=== PATIENT | female | born 2000 | race Caucasian/White ===

== ENCOUNTER 2019-05-02 05:36 | Day surgery (SDC) | payer OTHER ==
[~2019-05-02] VITALS: Ht 157.5 cm; Wt 50.9 kg
[2019-05-02] VITALS (17 sets, daily range): BP systolic 97–121; BP diastolic 48–73; PULSE 74–108; RESP 6–27; Ht 157.5 cm; Wt 50.9 kg
[2019-05-02] MEDS ORDERED: BUPIVACAINE 0.25%/EPI (SDV) 10 ML INJ ONE (06:57)
[2019-05-02] MEDS ORDERED: PHENYLephrine (100 MCG/ML) 10ML SYG ONE (06:58)
[2019-05-02] MEDS ORDERED: DESFLURANE 15 MIN ONE (06:58)
[2019-05-02] MEDS ORDERED: PROPOFOL 20 ML ONE (06:58)
[2019-05-02] MEDS ORDERED: SUCCINYLCHOLINE CHLORIDE 100 MG/5 ML SYG IV ONE (06:58)
[2019-05-02] MEDS ORDERED: LIDOCAINE 2% (SDV) 5 ML INJ ONE (06:58)
[2019-05-02] MEDS ORDERED: FENTAnyl 50 MCG/ML VIAL ONE ×2 (06:58→08:18)
[2019-05-02] MEDS ORDERED: CEFAZOLIN 1 GM INJ ONE (06:58)
[2019-05-02] MEDS ORDERED: MIDAZOLAM 1 MG/ML 2 ML INJ ONE (07:22)
[2019-05-02] MEDS ORDERED: DEXAMETHASONE 4 MG/ML 5 ML INJ ONE (07:30)
[2019-05-02] MEDS ORDERED: ONDANSETRON 4 MG INJ ONE (07:30)
[2019-05-02] MEDS ORDERED: FENTAnyl 50 MCG/ML VIAL IV PRN ×3 (08:00)
[2019-05-02] MEDS ORDERED: LABETALOL HCL 20MG INJ IV PRN (08:00)
[2019-05-02] MEDS ORDERED: ALBUTEROL 0.083% (NEB) 2.5 MG/3 ML AMP HHN PRN (08:00)
[2019-05-02] MEDS ORDERED: MEPERIDINE 25 MG INJ IV PRN (08:00)
[2019-05-02] MEDS ORDERED: OXYCODONE/ACETAMINOPHEN (5/325) TAB PO PRN ×2 (08:00)
[2019-05-02] MEDS ORDERED: DIPHENHYDRAMINE 50 MG INJ IV PRN (08:00)
[2019-05-02] MEDS ORDERED: IPRATROPIUM (NEB) 0.5 MG/2.5 ML AMP HHN PRN (08:00)
[2019-05-02] MEDS ORDERED: EPHEDrine 25 MG/5 ML SYG IV PRN (08:00)
[2019-05-02] MEDS ORDERED: ONDANSETRON 4 MG INJ IV PRN ×2 (08:00→09:00)
[2019-05-02] MEDS ORDERED: hydrALAzine 20 MG INJ IV PRN (08:00)
[2019-05-02] MEDS ORDERED: HYDROmorphONE 1 MG/5 ML IV SYRINGE IV PRN ×3 (08:00)
[2019-05-02] MEDS ORDERED: ROCURONIUM 50 MG INJ ONE (08:24)
[2019-05-02] MEDS ORDERED: IBUPROFEN 600 MG TAB PO PRN (09:00)
== END 2019-05-02 11:03 | disposition home or self-care (01) ==
LOC: SDS 05:36
PROVIDERS: ATTEND Surgery
DX: D24.1 Benign neoplasm of right breast (principal)
CPT/HCPCS: 19120; 88307; J0690; J1100; J2175; J2250; J2405; J3010; Z7512; Z7610; J2370